=== PATIENT | female | born 1970 | race Caucasian/White ===

== ENCOUNTER 2017-02-08 21:12 | Emergency (ER) | payer OTHER ==
[~2017-02-08] VITALS: Ht 170.2 cm; Wt 110.7 kg
[~2017-02-08 21:12] MED LIST: OXYC-130 PO; TRAZ150T77 PO; ZOLP10TA2 PO
[2017-02-08 22:16] VITALS: BP_SYST 128
[2017-02-08] MEDS ORDERED: CIPR-211 PO (22:25)
[2017-02-09 00:06] LABS: BASOPHILS # (AUTO) 0.1 K/uL (0.0-0.2); BASOPHILS % (AUTO) 1.1 % (0.0-2.0); EOSINOPHILS # (AUTO) 0.5 K/uL (0.0-0.4); EOSINOPHILS % (AUTO) 4.6 % (0.0-4.0); HEMATOCRIT 43.9 % (36-48); HEMOGLOBIN 14.6 g/dL (12.0-16.0); LYMPHOCYTES # (AUTO) 1.4 K/uL (1.0-5.5); LYMPHOCYTES % (AUTO) 12.9 % (20.5-51.5); MEAN CORPUSCULAR HEMOGLOBIN 28 pg (27-31); MEAN CORPUSCULAR HGB CONC 33 % (32-36); MEAN CORPUSCULAR VOLUME 83 fL (79.0-98.0); MONOCYTES # (AUTO) 0.4 K/uL (0.0-1.0); NEUTROPHILS # (AUTO) 8.3 K/uL (1.8-7.7); NEUTROPHILS % (AUTO) 77.4 % (40.0-70.0); PLATELET COUNT (AUTO) 265 K/uL (130-430); RED BLOOD CELL COUNT(AUTO) 5.26 MIL/uL (4.2-6.2); RED CELL DISTRIBUTION WIDTH 14.8 % (9.0-15.0); WHITE BLOOD COUNT (AUTO) 10.7 K/uL (4.8-10.8)
[2017-02-09 00:15] LABS: CREATININE 0.85 mg/dL (0.55-1.30); POTASSIUM 4.2 mmol/L (3.5-5.1)
[2017-02-09 00:18] LABS: PROTHROMBIN TIME 10.6 SECS (9.5-12.5)
[2017-02-09 00:21] LABS: BILIRUBIN,URINE NEGATIVE (NEGATIVE); BLOOD, URINE NEGATIVE (NEGATIVE); CLARITY/URINE CLEAR (CLEAR); COLOR,URINE YELLOW (YELLOW); GLUCOSE,URINE NEGATIVE (NEGATIVE); KETONES,URINE NEGATIVE (NEGATIVE); LEUKOCYTE ESTERASE ,URINE NEGATIVE (NEGATIVE); NITRITE, URINE NEGATIVE (NEGATIVE); PH,URINE 5.5 (5.0-8.0); PROTEIN URINE TRACE (NEGATIVE); UROBILINOGEN,URINE 0.2 (0.2-1.0)
[2017-02-09 00:21] LABS: ALBUMIN 3.7 g/dL (3.4-4.8); TOTAL BILIRUBIN 0.5 mg/dL (0.0-1.0); TOTAL PROTEIN, SERUM 7.3 g/dL (6.4-8.3)
[2017-02-09] MEDS: HYDROmorphone 1 MG INJ. 1 MG/ML AMPUL IVP ONE (00:53)
[2017-02-09 01:40] VITALS: BP_SYST 127
== END 2017-02-09 01:40 | disposition home or self-care (01) ==
LOC: SED 21:12
DX: R10.30 Lower abdominal pain, unspecified (principal); R11.2 Nausea with vomiting, unspecified; R19.7 Diarrhea, unspecified; J45.909 Unspecified asthma, uncomplicated; Z88.2 Allergy status to sulfonamides; Z90.89 Acquired absence of other organs
CPT/HCPCS: 36415; 74176; 80053; 81003; 81025; 82150; 83690; 85025; 85610; 96374; 99285; J1170

== ENCOUNTER 2018-04-16 11:17 | Emergency (ER) | payer OTHER ==
[~2018-04-16] VITALS: Ht 167.6 cm; Wt 108.9 kg
[~2018-04-16 11:17] MED LIST changes: +CIPR-211 PO; -OXYC-130 PO; -TRAZ150T77 PO; -ZOLP10TA2 PO
[2018-04-16 11:56] VITALS: BP_SYST 103
[2018-04-16] MEDS ORDERED: KETOROLAC TROMETHAMINE 60 MG/2 ML VIAL IM ONE (12:15)
[2018-04-16] MEDS ORDERED: ONDANSETRON 4 MG ODT TAB PO ONE (13:00)
[2018-04-16] MEDS ORDERED: MORPHINE SULFATE 10 MG/ML VIAL IM ONE (13:00)
[2018-04-16 14:00] VITALS: BP_SYST 103
== END 2018-04-16 14:00 | disposition home or self-care (01) ==
LOC: SED 11:17
DX: G89.29 Other chronic pain (principal); M54.5 Low back pain; J45.909 Unspecified asthma, uncomplicated; Z88.2 Allergy status to sulfonamides
CPT/HCPCS: 96372; 99284; J1885; J2270; Q0162

== ENCOUNTER 2018-04-18 15:38 | Emergency (ER) | payer OTHER ==
[~2018-04-18] VITALS: Ht 167.6 cm; Wt 108.9 kg
--- NOTE | 2018-04-18 15:48 | NUR ---
Pt placed in bed 5
--- NOTE | 2018-04-18 15:49 | NUR ---
ER JADYN Vanegas examining patient.
--- NOTE | 2018-04-18 15:50 | NUR ---
Patient c/c of lower back pain with spasms. Patient states pain is presentin left neck and right leg for the past couple of days. Patient denies any recent trauma, nausea, vomiting, or diarrhea. Patient vitals are stable.
[2018-04-18 15:56] VITALS: BP_SYST 124
[2018-04-18] MEDS ORDERED: ONDANSETRON 4 MG ODT TAB PO ONE (16:00)
[2018-04-18] MEDS ORDERED: KETOROLAC TROMETHAMINE 60 MG/2 ML VIAL IM ONE (16:00)
[2018-04-18] MEDS ORDERED: fentaNYL CITRATE/PF 100 MCG/2 ML AMP IM ONE (16:00)
--- NOTE | 2018-04-18 16:14 | NUR ---
Zofran 8mg ODT, Toradol 60 mg IM to L deltoid, Fentanyl 100mcg to R deltoid administered. Pt tolerated well. No adverse reactions noted. Warm blanket provided per pt request.
[2018-04-18 16:25] LABS: BILIRUBIN,URINE NEGATIVE (NEGATIVE); BLOOD, URINE NEGATIVE (NEGATIVE); CLARITY/URINE SL HAZY (CLEAR); COLOR,URINE YELLOW (YELLOW); GLUCOSE,URINE NEGATIVE (NEGATIVE); KETONES,URINE NEGATIVE (NEGATIVE); LEUKOCYTE ESTERASE ,URINE NEGATIVE (NEGATIVE); NITRITE, URINE NEGATIVE (NEGATIVE); PROTEIN URINE NEGATIVE (NEGATIVE); UROBILINOGEN,URINE 0.2 (0.2-1.0)
--- NOTE | 2018-04-18 16:47 | NUR ---
Patient given written and verbal discharge instructions and verbalizes understanding. ER MD discussed with patient the results and treatment provided. Patient in stable condition. ID arm band removed. No Rx given. Patient educated on pain management and to follow up with PMD. Pain Scale 4/10. Opportunity for questions provided and answered.
[2018-04-18 16:53] VITALS: BP_SYST 124
== END 2018-04-18 16:47 | disposition home or self-care (01) ==
LOC: SED 15:38
DX: M54.16 Radiculopathy, lumbar region (principal); G89.29 Other chronic pain; M54.5 Low back pain; R03.0 Elevated blood-pressure reading, without diagnosis of hypertension; J45.909 Unspecified asthma, uncomplicated; Z88.2 Allergy status to sulfonamides
CPT/HCPCS: 81003; 81025; 96372; 99284; J1885; J3010; Q0162

== ENCOUNTER 2021-01-24 16:48 | Emergency (ER) | payer OTHER ==
[~2021-01-24] VITALS: Ht 167.6 cm; Wt 97.5 kg
[~2021-01-24 16:48] MED LIST changes: -CIPR-211 PO; +CIPR500T5 PO
--- NOTE | 2021-01-24 16:50 | NUR ---
Placed in room 1 . Placed on equipment monitor phototypesetting, blood pressure machine and pulse oximeter. To gown for exam. Side rails up. Report given to DEVONTE Sow.
--- NOTE | 2021-01-24 16:53 | NUR ---
Pt came into ER with complaint of sharp lower back pain 03/26 that radiates down her legs X2days. Pt reports history of sciatica and herniated discs from a past fall. Pt resting in [facility] elevated blood pressure 147/89. Pt AAOX4.
[2021-01-24 16:54] VITALS: BP_SYST 147
--- NOTE | 2021-01-24 17:06 | NUR ---
ELVA Woodard at bedside examining patient.
[2021-01-24] MEDS ORDERED: MORPHINE SULFATE 10 MG/ML VIAL IM ONE ×2 (17:15→18:00)
--- NOTE | 2021-01-24 18:20 | NUR ---
Pt resting in gurney attached to monitor no distress noted.
[2021-01-24] MEDS ORDERED: NACL 0.9% 1,000 ML IV ONE (18:30)
[2021-01-24] MEDS ORDERED: MAG HYDROX/AL HYDROX/SIMETH 30 ML, DICYCLOMINE HCL 20 MG, LIDOCAINE VISCOUS 2% 15ML (PO... PO ONE ×3 (18:30)
[2021-01-24] MEDS ORDERED: ONDANSETRON HCL 4 MG/2 ML VIAL IVP ONE (18:30)
[2021-01-24] MEDS ORDERED: HYDR-3917 PO (19:07)
[2021-01-24 19:14] VITALS: BP_SYST 147
--- NOTE | 2021-01-24 19:16 | NUR ---
Patient given written and verbal discharge instructions and verbalizes understanding. ER MD discussed with patient the results and treatment provided. Patient in stable condition. ID arm band removed. Rx SENT TO PHARMACY. Patient educated on pain management and to follow up with PMD. Pain Scale 0/10. Opportunity for questions provided and answered. Medication side effect fact sheet provided.
== END 2021-01-24 19:16 | disposition home or self-care (01) ==
LOC: SED 16:48
DX: M54.16 Radiculopathy, lumbar region (principal); J45.909 Unspecified asthma, uncomplicated; Z88.2 Allergy status to sulfonamides; Z88.5 Allergy status to narcotic agent; Z79.899 Other long term (current) drug therapy
CPT/HCPCS: 96372; 99284; J2270

== ENCOUNTER 2021-01-30 03:39 | Emergency (ER) | payer OTHER ==
[~2021-01-30] VITALS: Ht 167.6 cm; Wt 108.9 kg
[~2021-01-30 03:39] MED LIST changes: +HYDR-3917 PO
[2021-01-30 04:19] VITALS: BP_SYST 115
[2021-01-30] MEDS ORDERED: ONDANSETRON HCL 4 MG/2 ML VIAL IVP ONE (04:45)
[2021-01-30] MEDS ORDERED: KETOROLAC TROMETHAMINE 30 MG VIAL IVP ONE (04:45)
[2021-01-30] MEDS ORDERED: NACL 0.9% 1,000 ML IV ONE (04:45)
[2021-01-30 04:57] LABS: BASOPHILS # (AUTO) 0.1 K/uL (0.0-0.2); BASOPHILS % (AUTO) 0.7 % (0.0-2.0); EOSINOPHILS # (AUTO) 0.4 K/uL (0.0-0.4); EOSINOPHILS % (AUTO) 4.4 % (0.0-4.0); HEMATOCRIT 41.5 % (36-48); HEMOGLOBIN 14.1 g/dL (12.0-16.0); LYMPHOCYTES # (AUTO) 3.9 K/uL (1.0-5.5); LYMPHOCYTES % (AUTO) 44.8 % (20.5-51.5); MEAN CORPUSCULAR HEMOGLOBIN 28 pg (27-31); MEAN CORPUSCULAR HGB CONC 34 % (32-36); MEAN CORPUSCULAR VOLUME 83 fL (79.0-98.0); MONOCYTES # (AUTO) 0.4 K/uL (0.0-1.0); MONOCYTES % (AUTO) 4.5 % (1.7-9.3); NEUTROPHILS % (AUTO) 45.6 % (40.0-70.0); PLATELET COUNT (AUTO) 258 K/uL (130-430); RED BLOOD CELL COUNT(AUTO) 5.01 MIL/uL (4.2-6.2); RED CELL DISTRIBUTION WIDTH 15.7 % (9.0-15.0); WHITE BLOOD COUNT (AUTO) 8.7 K/uL (4.8-10.8)
[2021-01-30 05:02] LABS: CALCIUM 8.6 mg/dL (8.4-11.0); CREATININE 1.02 mg/dL (0.55-1.30); POTASSIUM 3.9 mmol/L (3.5-5.1)
[2021-01-30 05:05] LABS: BILIRUBIN,URINE NEGATIVE (NEGATIVE); BLOOD, URINE NEGATIVE (NEGATIVE); CLARITY/URINE CLEAR (CLEAR); COLOR,URINE YELLOW (YELLOW); GLUCOSE,URINE NEGATIVE (NEGATIVE); KETONES,URINE NEGATIVE (NEGATIVE); LEUKOCYTE ESTERASE ,URINE NEGATIVE (NEGATIVE); NITRITE, URINE POSITIVE (NEGATIVE); PROTEIN URINE NEGATIVE (NEGATIVE)
[2021-01-30 05:06] LABS: ALBUMIN 3.8 g/dL (3.4-4.8); TOTAL BILIRUBIN 0.2 mg/dL (0.0-1.0)
[2021-01-30 05:13] LABS: BACTERIA,URINE MODERATE /HPF (None Seen); RBC,URINE 0-3 /HPF (0-3)
[2021-01-30] MEDS ORDERED: cefTRIAXone 1 GM VIAL ONE (06:13)
[2021-01-30] MEDS ORDERED: cefTRIAXone 1 GM in D5W 50 ML IV ONE (06:15)
[2021-01-30] MEDS ORDERED: HYDR-3917 PO ×2 (07:37→08:16)
[2021-01-30] MEDS ORDERED: NITR-85 PO ×2 (07:37→08:16)
[2021-01-30] MEDS ORDERED: HYDROcodone/ACETAMIN 10-325 MG TAB PO ONE (07:45)
[2021-01-30 08:22] VITALS: BP_SYST 136
== END 2021-01-30 08:23 | disposition home or self-care (01) ==
LOC: SED 03:39
DX: N12 Tubulo-interstitial nephritis, not specified as acute or chronic (principal); J45.909 Unspecified asthma, uncomplicated; Z88.2 Allergy status to sulfonamides; Z88.5 Allergy status to narcotic agent; Z79.899 Other long term (current) drug therapy
CPT/HCPCS: 36415; 74176; 76376; 80053; 81000; 83605; 83690; 85025; 87040; 87086; 96361; 96365; 96375; 99284; J0696; J1885; J2405; J7030

== ENCOUNTER 2021-06-15 21:49 | Emergency (ER) | payer OTHER, SELFPAY ==
[~2021-06-15] VITALS: Ht 167.6 cm; Wt 60.8 kg
[~2021-06-15 21:49] MED LIST changes: +NITR-85 PO
[2021-06-15 23:12] VITALS: BP_SYST 120
[2021-06-16 00:19] LABS: BASOPHILS % (AUTO) 0.6 % (0.0-2.0); EOSINOPHILS # (AUTO) 0.3 K/uL (0.0-0.4); EOSINOPHILS % (AUTO) 3.2 % (0.0-4.0); HEMATOCRIT 41.3 % (36-48); MEAN CORPUSCULAR HEMOGLOBIN 28 pg (27-31); MEAN CORPUSCULAR HGB CONC 34 % (32-36); MEAN CORPUSCULAR VOLUME 83 fL (79.0-98.0); MONOCYTES # (AUTO) 0.3 K/uL (0.0-1.0); MONOCYTES % (AUTO) 3.2 % (1.7-9.3); NEUTROPHILS # (AUTO) 6.2 K/uL (1.8-7.7); PLATELET COUNT (AUTO) 274 K/uL (130-430); RED BLOOD CELL COUNT(AUTO) 4.98 MIL/uL (4.2-6.2); RED CELL DISTRIBUTION WIDTH 15.7 % (9.0-15.0); WHITE BLOOD COUNT (AUTO) 8.8 K/uL (4.8-10.8)
[2021-06-16 00:28] LABS: CALCIUM 9.8 mg/dL (8.4-11.0); CREATININE 0.98 mg/dL (0.55-1.30); POTASSIUM 3.7 mmol/L (3.5-5.1)
[2021-06-16 00:31] LABS: PROTHROMBIN TIME 10.4 SECS (9.5-12.5)
[2021-06-16 00:41] LABS: ALBUMIN 4.2 g/dL (3.4-4.8); TOTAL BILIRUBIN 0.2 mg/dL (0.0-1.0)
[2021-06-16 01:21] LABS: CKMB RELATIVE INDEX 1.1 (0.0-2.9); CREATINE KINASE MB 2.3 ng/mL (0-3.6)
[2021-06-16 02:12] LABS: C-REACTIVE PROTEIN QUANT 0.2 mg/dL (0-0.5)
--- NOTE | 2021-06-16 02:50 | NUR ---
Patient to ER bed 1 to gown for evaluation. Side rails up.
[2021-06-16] MEDS ORDERED: IBUP-1971 PO (02:56)
--- NOTE | 2021-06-16 02:59 | NUR ---
MARIA R Ernandez at bedside examining patient.
[2021-06-16 03:03] VITALS: BP_SYST 122
--- NOTE | 2021-06-16 03:03 | NUR ---
Patient given written and verbal discharge instructions and verbalizes understanding. ER MD discussed with patient the results and treatment provided. Patient in stable condition. ID arm band removed. NO IV Rx of ibuprofen given. Patient educated on pain management and to follow up with PMD. Pain Scale 0/10. Opportunity for questions provided and answered. Medication side effect fact sheet provided.
== END 2021-06-16 03:03 | disposition home or self-care (01) ==
LOC: SED 21:49
DX: M94.0 Chondrocostal junction syndrome [Tietze] (principal); R06.00 Dyspnea, unspecified; J45.909 Unspecified asthma, uncomplicated; Z88.2 Allergy status to sulfonamides; Z88.5 Allergy status to narcotic agent; Z79.899 Other long term (current) drug therapy; Z20.822 Contact with and (suspected) exposure to COVID-19
CPT/HCPCS: 36415; 71045; 80053; 82550; 82553; 83605; 83615; 83880; 84484; 85025; 85379; 85384; 85610-TC; 85730-TC; 86140; 86710; 87040-TC; 93005; 99285

== ENCOUNTER 2022-08-09 11:24 | Emergency (ER) | payer OTHER ==
[~2022-08-09] VITALS: Ht 167.6 cm; Wt 115.7 kg
[~2022-08-09 11:24] MED LIST changes: +IBUP-1971 PO
[2022-08-09 11:26] VITALS: BP_SYST 102
--- NOTE | 2022-08-09 11:31 | NUR ---
MIGRAINE HEADACHE STARTED DAY , WENT TO URGENT CARE YESTERDAY STATED MIGRAINE, IV SALINE GIVEN, ABD CRAMPS 04/25 STARTED YESTERDAY WITH VOMITING,
--- NOTE | 2022-08-09 12:00 | NUR ---
PT BIB AWAKE AND ALERT AOX4. NO SOB OR DISTRESS. PT C/O HEAD ACHE X6 DAYS. PT STATED SHE HAS VOMITING AND NUESEA. PT HAS HX OF HTN, HDL, SCIATICA AND LOWER BACK PAIN.
--- NOTE | 2022-08-09 12:05 | NUR ---
MD DR HULL AT BEDSIDE
[2022-08-09 12:59] LABS: BASOPHILS # (AUTO) 0.1 K/uL (0.0-0.2); BASOPHILS % (AUTO) 0.8 % (0.0-2.0); EOSINOPHILS # (AUTO) 0.5 K/uL (0.0-0.4); EOSINOPHILS % (AUTO) 7.6 % (0.0-4.0); HEMATOCRIT 42.2 % (36-48); HEMOGLOBIN 14.2 g/dL (12.0-16.0); LYMPHOCYTES # (AUTO) 2.3 K/uL (1.0-5.5); LYMPHOCYTES % (AUTO) 33.3 % (20.5-51.5); MEAN CORPUSCULAR HEMOGLOBIN 28 pg (27-31); MEAN CORPUSCULAR HGB CONC 34 % (32-36); MEAN CORPUSCULAR VOLUME 83 fL (79.0-98.0); MONOCYTES # (AUTO) 0.4 K/uL (0.0-1.0); MONOCYTES % (AUTO) 5.5 % (1.7-9.3); NEUTROPHILS # (AUTO) 3.7 K/uL (1.8-7.7); NEUTROPHILS % (AUTO) 52.8 % (40.0-70.0); PLATELET COUNT (AUTO) 268 K/uL (130-430); RED BLOOD CELL COUNT(AUTO) 5.07 MIL/uL (4.2-6.2); WHITE BLOOD COUNT (AUTO) 6.9 K/uL (4.8-10.8)
[2022-08-09] MEDS ORDERED: KETOROLAC TROMETHAMINE 60 MG/2 ML VIAL IM ONE (13:00)
[2022-08-09 13:21] LABS: CALCIUM 9.4 mg/dL (8.4-11.0); CREATININE 0.68 mg/dL (0.55-1.30)
[2022-08-09 13:25] LABS: ALBUMIN 3.7 g/dL (3.4-4.8); TOTAL BILIRUBIN 0.3 mg/dL (0.0-1.0)
[2022-08-09 13:27] LABS: BILIRUBIN,URINE NEGATIVE (NEGATIVE); BLOOD, URINE NEGATIVE (NEGATIVE); CLARITY/URINE CLEAR (CLEAR); COLOR,URINE YELLOW (YELLOW); GLUCOSE,URINE NEGATIVE (NEGATIVE); KETONES,URINE TRACE (NEGATIVE); LEUKOCYTE ESTERASE ,URINE NEGATIVE (NEGATIVE); NITRITE, URINE NEGATIVE (NEGATIVE); PROTEIN URINE NEGATIVE (NEGATIVE); UROBILINOGEN,URINE 0.2 (0.2-1.0)
[2022-08-09] MEDS ORDERED: DIPHENHYDRAMINE INJ 50 MG/ML VIAL IVP ONE (13:45)
[2022-08-09] MEDS ORDERED: METOCLOPRAMIDE HCL 10 MG/2 ML VIAL IVP ONE (13:45)
[2022-08-09] MEDS ORDERED: NACL 0.9% 1,000 ML IV ONE (13:45)
[2022-08-09] MEDS ORDERED: OMEP-268 PO (16:13)
[2022-08-09] MEDS ORDERED: IBUP-1971 PO (16:13)
[2022-08-09] MEDS ORDERED: PANTOPRAZOLE SODIUM 40 MG/VIAL (PROTONIX) IVP ONE (16:15)
[2022-08-09 17:02] VITALS: BP_SYST 126
--- NOTE | 2022-08-09 17:04 | NUR ---
Patient given written and verbal discharge instructions and verbalizes understanding. ER MD DR CISNEROS discussed with patient the results and treatment provided. Patient in stable condition. ID arm band removed. IV catheter removed intact and dressing applied, no active bleeding. Rx of MOTRIN AND OMEPRAZOLE given. Patient educated on pain management and to follow up with PMD. Pain Scale 6/10. Opportunity for questions provided and answered. Medication side effect fact sheet provided.
== END 2022-08-09 17:02 | disposition home or self-care (01) ==
LOC: SED 11:24
DX: R51.9 Headache, unspecified (principal); R10.9 Unspecified abdominal pain; R11.2 Nausea with vomiting, unspecified; J45.909 Unspecified asthma, uncomplicated; Z88.2 Allergy status to sulfonamides; Z88.6 Allergy status to analgesic agent; Z79.899 Other long term (current) drug therapy
CPT/HCPCS: 99285; 96374; 70450; 96375; 80053; 85025; 36415; 76376; 96372; 81003; J1200; J1885; J2765; C9113